=== PATIENT | male | born 2000 | race Caucasian/White ===

== ENCOUNTER 2022-04-14 21:55 | Emergency (ER) | payer BC ==
[2022-04-14] MEDS ORDERED: Sodium Chloride 0.9% 10 ML Syringe FLUSH PRN (22:00)
[2022-04-14] MEDS: Sodium Chloride 0.9% 1,000 ML IV ONE (22:10)
[2022-04-14] MEDS: Ketorolac 30 MG/ML SDV IVPUSH ONE (22:12)
[2022-04-14] MEDS: Ondansetron 4 MG/2 ML SDV IVPUSH ONE (22:14)
[2022-04-14 22:45] LABS: ANION GAP 10.4 meq/L (7-15); CHLORIDE,CL 102 mmol/L (98-107); SODIUM,NA 139 mmol/L (136-145)
[2022-04-14 22:48] LABS: ESTIMATED GFR 84 mL/min (>=60)
[2022-04-14] MEDS ORDERED: Azithromycin 250 MG Tab PO ONE (23:30)
[2022-04-14] MEDS ORDERED: cefTRIAXone 2 GM Vial IVPUSH SCH (23:30)
== END 2022-04-15 03:39 | disposition home or self-care (01) ==
LOC: LL.ED 21:55
DX: N20.0 Calculus of kidney (principal)
CPT/HCPCS: 36415; 74176; 80053; 81001; 85025; 96361; 96374; 96375; 99284; 99284-25; J1885; J2405; J7030

== ENCOUNTER 2022-04-15 18:55 | Emergency (ER) | payer BC ==
[2022-04-15] MEDS ORDERED: Ketorolac 10 MG Tab PO ONE (19:05)
[2022-04-15] MEDS ORDERED: Ondansetron 4 MG/2 ML SDV IVPUSH ONE (19:06)
[2022-04-15] MEDS ORDERED: HYDROmorphone 1 MG/ML Syringe IVPUSH ONE (19:11)
[2022-04-15] MEDS ORDERED: Sodium Chloride 0.9% 1,000 ML IV SCH (19:15)
[2022-04-15] MEDS ORDERED: Ketorolac 30 MG/ML SDV IVPUSH ONE (19:18)
[2022-04-15] MEDS ORDERED: Tamsulosin 0.4 MG Cap.ER PO ONE (19:49)
[2022-04-15] MEDS ORDERED: HYDROmorphone 0.5 MG/0.5 ML Syringe IVPUSH ONE (20:33)
== END 2022-04-15 21:15 | disposition home or self-care (01) ==
LOC: LL.ED 18:55
DX: N20.0 Calculus of kidney (principal); N23 Unspecified renal colic
CPT/HCPCS: 96361; 96374; 96375; 96376; 99283; 99284; A9270; J1170; J1885; J2405; J7030

== ENCOUNTER 2022-04-20 20:56 | Emergency (ER) | payer BC ==
[2022-04-20] MEDS ORDERED: Promethazine 25 MG/ML SDV IM ONE (21:05)
[2022-04-20] MEDS ORDERED: Ondansetron 4 MG/2 ML SDV IVPUSH ONE (21:05)
[2022-04-20] MEDS ORDERED: Ketorolac 15 MG/ML SDV IM ONE (21:05)
[2022-04-20] MEDS ORDERED: Sodium Chloride 0.9% 1,000 ML IV ONE (21:07)
[2022-04-20] MEDS ORDERED: Ketorolac 30 MG/ML SDV IVPUSH ONE (21:26)
[2022-04-20] MEDS ORDERED: Ketorolac 15 MG/ML SDV IVPUSH ONE (21:28)
[2022-04-20 21:56] LABS: ANION GAP 8.7 meq/L (7-15); CHLORIDE,CL 107 mmol/L (98-107); ESTIMATED GFR 77 mL/min (>=60); SODIUM,NA 142 mmol/L (136-145)
== END 2022-04-20 22:30 | disposition home or self-care (01) ==
LOC: LL.ED 20:56
DX: N23 Unspecified renal colic (principal); R94.4 Abnormal results of kidney function studies
CPT/HCPCS: 36415; 74176; 80053; 85025; 96361; 96372; 96374; 96375; 99284; 99284-25; J1885; J2405; J2550; J7030